=== PATIENT | male | born 1980 | race Caucasian/White ===

== ENCOUNTER 2024-05-15 15:27 | Emergency (ER) | payer OTHER ==
[2024-05-15] MEDS ORDERED: Bacitracin 1 PK ONE (15:50)
== END 2024-05-15 15:55 | disposition home or self-care (01) ==
LOC: NAV ERS 15:27
DX: S00.11XA Contusion of right eyelid and periocular area, initial encounter (principal); W21.89XA Striking against or struck by other sports equipment, initial encounter
CPT/HCPCS: 99283